=== PATIENT | male | born 1995 | race Caucasian/White ===

== ENCOUNTER 2022-11-10 11:23 | Emergency (ER) | payer MEDICAID, SELFPAY ==
[2022-11-10 11:24] VITALS: BP 151/92; PULSE 128; RESP 19; TEMP 36.2; O2SAT 100; BMI 32.9
--- NOTE | 2022-11-10 12:37 | EX.ED.DYSGE1 ---
HPI <HAYLEE Newton - Last Filed: 11/10/22 13:40> History of Present Illness Chief Complaint: Abscess Narrative Narrative: Patient presenting today with an abscess to his left superior gluteal cleft that he has had for the past 3 to 4 days. He reports that this has happened in the past in the same area but has never had to have an I&D. He denies any fever or chills. He denies a PMH of any chronic health conditions. PFSH <HAYLEE Newton - Last Filed: 11/10/22 13:40> PFSH Home Medications Lisdexamfetamine Dimesylate [Vyvanse] 50 mg PO DAILY 12/04/15 [History Last Taken Unknown] naproxen 500 mg tablet 500 mg PO BID #20 tabs 12/04/15 [Rx Last Taken Unknown] doxycycline hyclate 100 mg tablet 100 mg PO BID #10 tabs 11/10/22 [Rx Last Taken Unknown] oxycodone-acetaminophen 5 mg-325 mg tablet (Percocet) 1 tab PO Q8H PRN pain 2 days #6 tabs 11/10/22 [Rx Last Taken Unknown] Allergy/AdvReac Type Severity Reaction Status Date / Time No Known Allergies Allergy Verified 11/10/22 11:25 Social History Smoking Status: Current every day smoker tobacco type: cigarettes ROS <HAYLEE Newton - Last Filed: 11/10/22 13:40> ROS ED Constitutional Constitutional ED: Denies chills or fever(s) Cardiovascular Cardiovascular: Denies chest pain Respiratory/Chest Respiratory/Chest: Denies cough or dyspnea Gastrointestinal Gastrointestinal: Denies abdominal pain, nausea or vomiting Musculoskeletal Musculoskeletal: Denies arthralgias or myalgias Integumentary Reports abscess Neurologic Neurologic: Denies weakness EXAM <HAYLEE Newton - Last Filed: 11/10/22 13:40> Physical Exam Const Vital Signs: 11/10/22 11:24 Temperature 97.1 F L Temperature Source Temporal Pulse Rate 128 H Respiratory Rate 19 H Blood Pressure 151/92 H Blood Pressure Mean 111 Pulse Ox 100 Oxygen Delivery Method Room Air Positive well nourished, well developed and no apparent distress General Appearance ED: well developed HEENT Reports normocephalic and head/scalp atraumatic Mouth ED: Yes moist mucous membranes normal Eyes PERRL and EOMs intact bilaterally Neck full ROM and supple Chest Wall inspection of chest normal Resp normal respiratory effort and clear to auscultation bilaterally Cardio regular rate and regular rhythm GI soft to palpation, non-tender, non-distended and no masses GI Narrative: 3 cm diameter fluctuant and erythemic abscess to the superior left gluteal cleft Back/Spine normal ROM and normal to inspection Extremity normal to inspection and full ROM Neuro oriented x3, CN's II-XII intact bilaterally, moves all extremities, no focal motor deficits and no sensory deficits noted Sensorium / Orientation: awake and alert Psych mental status grossly normal and thought process normal Skin no rashes or lesions noted and no wounds <Dr. Twan Noriega, - Last Filed: 11/10/22 13:52> Physical Exam Const Vital Signs: 11/10/22 11:24 Temperature 97.1 F L Temperature Source Temporal Pulse Rate 128 H Respiratory Rate 19 H Blood Pressure 151/92 H Blood Pressure Mean 111 Pulse Ox 100 Oxygen Delivery Method Room Air MDM <HAYLEE Newton - Last Filed: 11/10/22 13:40> [facility] Narrative Medical decision making narrative: Patient presenting today with an abscess to his left superior gluteal cleft that he has had for the past 3 or 4 days. He has had a history of these in the past but has never had to have them I&D as they went away on their own. He is well-appearing and nontoxic, he is slightly tachycardic here and afebrile. The abscess was I&D, see procedure note. Patient tolerated procedure well. He was given a dose of doxycycline here as well as Percocet and a prescription for both of those for home. He has been instructed to soak his bottom in warm soapy water twice a day for the next few days, a wick was placed and he is instructed to take that out Friday morning. He is to follow-up with his PCP in 5 to 7 days for reevaluation. He has been given return instructions and will be discharged home in stable condition. He is comfortable with plan. <Dr. Twan Noriega DO - Last Filed: 11/10/22 13:52> [facility] Narrative Medical decision making narrative: Patient presenting today with an abscess to his left superior gluteal cleft that he has had for the past 3 or 4 days. He has had a history of these in the past but has never had to have them I&D as they went away on their own. He is well-appearing and nontoxic, he is slightly tachycardic here and afebrile. The abscess was I&D, see procedure note. Patient tolerated procedure well. He was given a dose of doxycycline here as well as Percocet and a prescription for both of those for home. He has been instructed to soak his bottom in warm soapy water twice a day for the next few days, a wick was placed and he is instructed to take that out Friday morning. He is to follow-up with his PCP in 5 to 7 days for reevaluation. He has been given return instructions and will be discharged home in stable condition. He is comfortable with plan. I have personally performed a face to face assessment of the patient and have reviewed the JOSEPH Note. I performed a substantive portion of the visit including all aspects of the following. 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 Is never required I&D before. No fevers. No spontaneous drainage. Exam is a fluctuant abscess noted on the left cephalad gluteal fold. There is some surrounding erythema Medical Decison Making incision and drainage was performed. He will be placed on doxycycline instructions on packing. He was given instructions on follow-up and return Procedures <HAYLEE Newton - Last Filed: 11/10/22 13:40> Other Procedures Procedure(s): I&D: Betadine was used to clean the area of the abscess, 11 blade was used to make an incision, purulent material was expelled from the abscess and suctioned, 3.5 inch wick was placed. Discharge Plan Triage Chief Complaint: Abscess ED Midlevel Provider: Amy Hernandez ED Provider: Twan Noriega Dx/Rx/DC Orders Clinical Impression: Abscess, gluteal, left Instructions: ED Abscess Incision And Drainage Prescriptions: New doxycycline hyclate 100 mg tablet 100 mg PO BID Qty: 10 0RF oxycodone-acetaminophen [Percocet] 5-325 mg tablet 1 tab PO Q8H PRN (Reason: pain) 2 Days Qty: 6 0RF No Action Lisdexamfetamine Dimesylate [Vyvanse] 50 MG capsule 50 mg PO DAILY naproxen 500 MG tablet 500 mg PO BID Qty: 20 0RF Primary Care Provider: Brandin Patel Referrals: Brandin Patel DO [Primary Care Provider] - 5-7 Days Activity Restrictions/Additional Instructions: Soak your bottom in warm soapy water twice a day for several minutes, remove packing on Friday, if it comes out before then that is okay. Please return for any worsening of your symptoms. Take antibiotics as directed and follow-up with PCP in 5 to 7 days. Disposition Disposition: Home, Self Care Discharge Date/Time: 11/10/22 13:48
[2022-11-10] MEDS: Doxycycline 100 MG CAPSULE PO (13:46)
[2022-11-10] MEDS: Oxycodone/Apap 5/325 Tablet PO (13:46)
[2022-11-10] MEDS: Lidocaine 1% (20 ml mdv) 20 ML Vial 10 ML INFILT (13:47)
== END 2022-11-10 13:48 | disposition home or self-care (01) ==
PROVIDERS: Emergency Provider Emergency Medicine; PCP Student in an Organized Health Care Education/Training Program; Visit Provider Emergency Medicine
DX: L02.31 Cutaneous abscess of buttock (principal); F17.210 Nicotine dependence, cigarettes, uncomplicated
CPT/HCPCS: 10061; 10060; 99284

== ENCOUNTER 2023-01-25 18:37 | Emergency (ER) | payer BC, SELFPAY ==
[2023-01-25 18:38] VITALS: BP 124/93; PULSE 140; RESP 15; TEMP 36.5; O2SAT 96; BMI 30.8
--- NOTE | 2023-01-25 19:35 | EX.ED.DYSGE1 ---
HPI <HAYLEE Newton - Last Filed: 01/25/23 21:19> History of Present Illness Chief Complaint: Abscess Narrative Narrative: Patient presenting due to an abscess to his left superior gluteal cleft that he has had for the past 3 days. He reports that this has happened before, he required I&D and antibiotics and did have resolution of his symptoms. He denies any fever or chills. PFSH <HAYLEE Newton - Last Filed: 01/25/23 21:19> PFSH Home Medications Lisdexamfetamine Dimesylate [Vyvanse] 50 mg PO DAILY 12/04/15 [History Last Taken Unknown] naproxen 500 mg tablet 500 mg PO BID #20 tabs 12/04/15 [Rx Last Taken Unknown] doxycycline hyclate 100 mg tablet 100 mg PO BID #10 tabs 11/10/22 [Rx Last Taken Unknown] oxycodone-acetaminophen 5 mg-325 mg tablet (Percocet) 1 tab PO Q8H PRN pain 2 days #6 tabs 11/10/22 [Rx Last Taken Unknown] doxycycline hyclate 100 mg capsule 100 mg PO BID #10 caps 01/25/23 [Rx Last Taken Unknown] ibuprofen 600 mg tablet 600 mg PO Q6H PRN PRN pain #15 TABLETS 01/25/23 [Rx Last Taken Unknown] Allergy/AdvReac Type Severity Reaction Status Date / Time No Known Allergies Allergy Verified 01/25/23 18:41 Social History Smoking Status: Current every day smoker tobacco type: cigarettes ROS <HAYLEE Newton - Last Filed: 01/25/23 21:19> ROS ED Constitutional Constitutional ED: Denies chills or fever(s) Cardiovascular Cardiovascular: Denies chest pain Respiratory/Chest Respiratory/Chest: Denies cough or dyspnea Gastrointestinal Gastrointestinal: Denies abdominal pain, nausea or vomiting Musculoskeletal Musculoskeletal: Denies arthralgias or myalgias Integumentary Reports abscess EXAM <HAYLEE Newton - Last Filed: 01/25/23 21:19> Physical Exam Const Vital Signs: 01/25/23 18:38 01/25/23 21:25 01/25/23 21:40 Temperature 97.7 F L Temperature Source Temporal Pulse Rate 140 H 112 H 112 H Respiratory Rate 15 18 18 Blood Pressure 124/93 H Blood Pressure Mean 103 Pulse Ox 96 96 96 Oxygen Delivery Method Room Air Room Air Positive well nourished, well developed and no apparent distress General Appearance ED: well developed HEENT Reports normocephalic and head/scalp atraumatic Mouth ED: Yes moist mucous membranes normal Eyes PERRL and EOMs intact bilaterally Neck full ROM and supple Chest Wall inspection of chest normal Resp normal respiratory effort and clear to auscultation bilaterally Cardio regular rate and regular rhythm GI soft to palpation, non-tender, non-distended and no masses GI Narrative: Fluctuant abscess to the left superior gluteal cleft with surrounding erythema. Back/Spine normal ROM and normal to inspection Extremity normal to inspection and full ROM Neuro oriented x3, CN's II-XII intact bilaterally, moves all extremities, no focal motor deficits and no sensory deficits noted Sensorium / Orientation: awake and alert Psych mental status grossly normal and thought process normal Skin no rashes or lesions noted and no wounds <Dr. Marc Lopez DO - Last Filed: 01/25/23 23:20> Physical Exam Const Vital Signs: 01/25/23 18:38 01/25/23 21:25 01/25/23 21:40 Temperature 97.7 F L Temperature Source Temporal Pulse Rate 140 H 112 H 112 H Respiratory Rate 15 18 18 Blood Pressure 124/93 H Blood Pressure Mean 103 Pulse Ox 96 96 96 Oxygen Delivery Method Room Air Room Air [facility] <HAYLEE Newton - Last Filed: 01/25/23 21:19> [facility] Narrative Medical decision making narrative: Patient presenting due to a abscess to his left superior gluteal cleft. This will need I&D. He is tachycardic here initially, this is consistent with his previous presentation. This will be rechecked. He will be started on antibiotics with first dose here. I have seen patient previously, abscess is consistent with his previous abscess. Given these abscesses are recurrent, he will be given a general surgery referral. I was able to I&D, patient tolerated procedure well, see procedure note, wick was placed. He is to remove wick in 72 hours. He will be given a prescription for doxycycline and ibuprofen. He has been given a work note. He has been encouraged to perform sitz bath's for the next few days and will be discharged home in stable condition. He is comfortable with plan. <Dr. Marc Lopez DO - Last Filed: 01/25/23 23:20> [facility] Narrative Medical decision making narrative: Patient presenting due to a abscess to his left superior gluteal cleft. This will need I&D. He is tachycardic here initially, this is consistent with his previous presentation. This will be rechecked. He will be started on antibiotics with first dose here. I have seen patient previously, abscess is consistent with his previous abscess. Given these abscesses are recurrent, he will be given a general surgery referral. I was able to I&D, patient tolerated procedure well, see procedure note, wick was placed. He is to remove wick in 72 hours. He will be given a prescription for doxycycline and ibuprofen. He has been given a work note. He has been encouraged to perform sitz bath's for the next few days and will be discharged home in stable condition. He is comfortable with plan. This patient was seen with a PA/PARAPROFESSIONAL EDUCATION ASSISTANT Individually assessed they patient including history and physical. I have reviewed everything on the chart that is available and agree with the documentation provided by the PA/PARAPROFESSIONAL EDUCATION ASSISTANT including discussion about the assessment, treatment plan, discussion, and return precautions. Patient with stevie cleft abscess. He states this is recurrent. He states he had this a couple of times and usually has to get it drained. He is never followed up with anybody else. Patient had this incised and drained here by the PA. He tolerated procedure well. Packing was placed. He was given instructions for sitz bath's. He will be put on antibiotics as well. I gave him follow-up with general surgery. Patient amenable to this. Impression: 1. Gluteal abscess 2. Incision and drainage Procedures <HAYLEE Newton - Last Filed: 01/25/23 21:19> Other Procedures Procedure(s): I&D: Abscess was cleaned with Betadine swabs, 1% lidocaine was used to anesthetize the area, small incision was made with a #11 blade, purulent discharge expelled from the wound, irrigated with normal saline and loculations broken, 3.5 inch packing placed Discharge Plan Triage Chief Complaint: Abscess ED Midlevel Provider: Amy Hernandez ED Provider: Marc Lopez Dx/Rx/DC Orders Clinical Impression: Abscess Instructions: ED Abscess Incision And Drainage Prescriptions: New doxycycline hyclate 100 mg capsule 100 mg PO BID Qty: 10 0RF ibuprofen 600 mg tablet 600 mg PO Q6H PRN PRN (Reason: pain) Qty: 15 0RF No Action Lisdexamfetamine Dimesylate [Vyvanse] 50 MG capsule 50 mg PO DAILY naproxen 500 MG tablet 500 mg PO BID Qty: 20 0RF doxycycline hyclate 100 mg tablet 100 mg PO BID Qty: 10 0RF oxycodone-acetaminophen [Percocet] 5-325 mg tablet 1 tab PO Q8H PRN (Reason: pain) 2 Days Qty: 6 0RF Stand Alone Forms: ED Work / School Excuse Primary Care Provider: Brandin Patel Referrals: Maciel Guzman MD [Med Staff - Active Staff] - As Needed Brandin Patel DO [Primary Care Provider] - 1-2 Days if not improving Activity Restrictions/Additional Instructions: Please follow-up with your PCP, return for any worsening of your symptoms. Remove wick in 72 hours. Take antibiotics as directed. Perform sitz bath's twice a day for the next few days. Disposition Disposition: Home, Self Care Discharge Date/Time: 01/25/23 21:42
[2023-01-25] MEDS: Lidocaine 1% (20 ml mdv) 20 ML Vial 10 ML INFILT (20:43)
[2023-01-25] MEDS: Doxycycline 100 MG CAPSULE PO (20:43)
[2023-01-25 21:25] VITALS: PULSE 112; RESP 18; O2SAT 96
[2023-01-25] MEDS: Ibuprofen 600 MG Tablet PO (21:38)
[2023-01-25 21:40] VITALS: PULSE 112; RESP 18; O2SAT 96
== END 2023-01-25 21:42 | disposition home or self-care (01) ==
PROVIDERS: Emergency Provider Student in an Organized Health Care Education/Training Program; PCP Student in an Organized Health Care Education/Training Program; Visit Provider Student in an Organized Health Care Education/Training Program
DX: L02.31 Cutaneous abscess of buttock (principal); F17.210 Nicotine dependence, cigarettes, uncomplicated
CPT/HCPCS: 10060; 99283

== ENCOUNTER 2023-08-02 08:56 | Emergency (ER) | payer OTHER, BC, SELFPAY ==
[2023-08-02 08:58] VITALS: BP 132/92; PULSE 106; RESP 14; RESP 16; TEMP 36.2; O2SAT 97; BMI 28.5
--- NOTE | 2023-08-02 09:34 | RAD_ITS ---
STUDY: X-RAY - RIGHT ANKLE REASON FOR EXAM: Male, 27 years old. PAIN, weight dropped on foot/ankle TECHNIQUE: 3 view(s) of the ankle. COMPARISON: None. FINDINGS: Normal visualized distal tibia and fibula. Normal medial and lateral malleoli. Normal tibiotalar articulation and ankle mortise. Normal visualized talus and calcaneus. The visualized subtalar, talonavicular, calcaneocuboid and tarsal articulations are normal. There is no demonstrated fracture. The soft tissue structures are unremarkable. RAD/Ankle min 3 Views IMPRESSION: Normal x-ray examination of the ankle. Electronically Signed: Polo Salter MD at 10:06 EDT ,
--- NOTE | 2023-08-02 09:34 | RAD_ITS ---
STUDY: X-RAY - RIGHT FOOT CLINICAL: Male, 27 years old. PAIN, weight dropped on foot/ankle TECHNIQUE: 3 view(s) of the foot. COMPARISON: None. FINDINGS: Normal talus, calcaneus, and tarsal bones. Normal visualized subtalar, talonavicular, calcaneocuboid, tarsal and tarsometatarsal articulations. Normal metatarsi. Normal metatarsophalangeal joint of the great toe. Normal tibial and fibular sesamoid bones. Normal interphalangeal joint of the great toe. Normal phalanges of the great toe. Normal second through fifth metatarsophalangeal joints. Normal interphalangeal joints and phalanges of the lesser toes. The soft tissue structures are unremarkable. There is no demonstrated fracture. RAD/Foot min 3 Views IMPRESSION: Normal x-ray examination of the foot. Electronically Signed: Polo Salter MD at 10:07 EDT ,
[2023-08-02] MEDS: Naproxen 500 MG Tablet PO (09:49)
--- NOTE | 2023-08-02 10:16 | ED.VIS.LOWEX ---
HPI History of Present Illness Chief Complaint: Lower Extremity Injury Informant: patient Occured/Mechanism Mechanism/Context: Yes crush Narrative Narrative: Patient presents secondary to right foot and ankle injury. He was at work today when he dropped something weighing at least 50 pounds on his right foot and ankle. He was wearing boots with steel toed inserts. He complains of pain across the front of his ankle and proximal top of his foot. [facility] Medical History (Updated 08/02/23 @ 10:[address] Maria Alejandra Cramer MD) ADHD Home Medications ?Medication ?Instructions ?Recorded ?Last Taken ?Type Lisdexamfetamine Dimesylate 50 mg PO DAILY 12/04/15 Unknown History [Vyvanse] naproxen 500 mg tablet 500 mg PO BID #20 tabs 12/04/15 Unknown Rx doxycycline hyclate 100 mg tablet 100 mg PO BID #10 tabs 11/10/22 Unknown Rx oxycodone-acetaminophen 5 mg-325 1 tab PO Q8H PRN pain 2 days #6 11/10/22 Unknown Rx mg tablet (Percocet) tabs doxycycline hyclate 100 mg capsule 100 mg PO BID #10 caps 01/25/23 Unknown Rx ibuprofen 600 mg tablet 600 mg PO Q6H PRN PRN pain #15 01/25/23 Unknown Rx TABLETS naproxen 500 mg tablet (Naprosyn) 500 mg PO BID PRN pain #20 tabs 08/02/23 Unknown Rx Allergy/AdvReac Type Severity Reaction Status Date / Time No Known Allergies Allergy Verified 08/02/23 09:00 Social History Smoking Status: Current every day smoker tobacco type: cigarettes ROS ROS ED Constitutional Constitutional ED: Denies chills or fever(s) ENT ENT ED: Denies rhinorrhea or sore throat Cardiovascular Cardiovascular: Denies chest pain Respiratory/Chest Respiratory/Chest: Denies cough or dyspnea Gastrointestinal Gastrointestinal: Denies abdominal pain, nausea or vomiting Musculoskeletal Musculoskeletal: Reports extremity pain; Denies back pain Integumentary Denies Abrasions or rash Neurologic Neurologic: Denies headache(s), paresthesias or weakness Psychiatric Psychiatric: Denies anxiety or depression Allergic/Immunologic Allergic/Immunologic ED: Denies lip swelling or urticaria EXAM Physical Exam Const Vital Signs: 08/02/23 08:58 08/02/23 08:58 Temperature 97.1 F L Temperature Source Temporal Pulse Rate 106 H 106 H Respiratory Rate 16 14 Blood Pressure 132/92 H 132/92 H Blood Pressure Mean 105 105 Pulse Ox 97 97 Oxygen Delivery Method Room Air Room Air Positive well nourished and well developed General Appearance ED: well developed HEENT Reports moist mucous membranes Chest Wall inspection of chest normal and palpation of chest normal Resp normal respiratory effort and clear to auscultation bilaterally Cardio regular rate and regular rhythm GI non-tender Palpation: soft Extremity Extremity Narrative: Tenderness palpation of over the anterior ankle and proximal foot. No erythema, ecchymosis, abrasions, or edema. Good distal pulses. No tenderness over the calcaneus or proximal fibula. Neuro oriented x3, moves all extremities and no sensory deficits noted Motor Exam: strength 5/5 throughout Psych mental status grossly normal Skin no wounds Lesions: no lesions Rashes: no rashes MDM MDM MDM Narrative Medical decision making narrative: Ice pack placed to the area. Patient given a dose of Naprosyn. Right foot and ankle x-rays obtained to evaluate for any acute bony injury. Radiography Diagnostic Testing: Clinical Impression(s) from Imaging Studies Ankle X-Ray 08/02/23 09:34 IMPRESSION: Normal x-ray examination of the ankle. Electronically Signed: Polo Salter MD at 10:06 EDT , Foot X-Ray 08/02/23 09:34 IMPRESSION: Normal x-ray examination of the foot. Electronically Signed: Polo Salter MD at 10:07 EDT , Treatment and Re-Evaluation Narrative: Right foot and ankle x-rays per my interpretation will no evidence of bony injury. Radiology interpretation reviewed and agrees. Test results discussed with the patient. He will be placed in an Jim wrap and a prescription for naproxen will be sent to the pharmacy for him. He will be given work restrictions. He will follow-up with [facility]. Discharge Plan Triage Chief Complaint: Lower Extremity Injury ED Provider: Maria Alejandra Cramer Dx/Rx/DC Orders Clinical Impression: Crush injury of right foot Instructions: ED Crush Injury, Foot/Toe Prescriptions: New naproxen [Naprosyn] 500 mg tablet 500 mg PO BID PRN (Reason: pain) Qty: 20 0RF No Action Lisdexamfetamine Dimesylate [Vyvanse] 50 MG capsule 50 mg PO DAILY naproxen 500 MG tablet 500 mg PO BID Qty: 20 0RF doxycycline hyclate 100 mg tablet 100 mg PO BID Qty: 10 0RF oxycodone-acetaminophen [Percocet] 5-325 mg tablet 1 tab PO Q8H PRN (Reason: pain) 2 Days Qty: 6 0RF doxycycline hyclate 100 mg capsule 100 mg PO BID Qty: 10 0RF ibuprofen 600 mg tablet 600 mg PO Q6H PRN PRN (Reason: pain) Qty: 15 0RF Stand Alone Forms: Work Status Form Primary Care Provider: Brandin Patel Referrals: [facility] [Group of Physicians] - 3-5 Days Brandin Patel DO [Primary Care Provider] - Print Language: Tajik Disposition Disposition: Home, Self Care
[2023-08-02 10:39] VITALS: BP 158/72; PULSE 86; RESP 16; TEMP 36.6; O2SAT 99
== END 2023-08-02 10:41 | disposition home or self-care (01) ==
PROVIDERS: Emergency Provider Emergency Medicine; PCP Student in an Organized Health Care Education/Training Program; Visit Provider Emergency Medicine
DX: S97.81XA Crushing injury of right foot, initial encounter (principal); F17.210 Nicotine dependence, cigarettes, uncomplicated; W20.8XXA Other cause of strike by thrown, projected or falling object, initial encounter; Y93.89 Activity, other specified; Y99.0 Civilian activity done for income or pay; F90.9 Attention-deficit hyperactivity disorder, unspecified type
CPT/HCPCS: 73610; 73630; 99282